=== PATIENT | male | born 1945 | race Caucasian/White ===

== ENCOUNTER 2017-04-23 11:59 | Inpatient (IN) | payer OTHER ==
[~2017-04-23] VITALS: Ht 157.5 cm; Wt 48.5 kg
[~2017-04-23 11:59] MED LIST: ASPI81 PO; DOCU-119 PO; LISI10TA7 PO; RIVA1PAT3 TD
[2017-04-23] MEDS ORDERED: SODIUM CHLORIDE 0.9% 1,000 ML IV ONE ×2 (12:30→14:00)
[2017-04-23] MEDS ORDERED: ACETAMINOPHEN 650 MG RECTAL SUPPOSITORY PR ONE (12:30)
[2017-04-23 12:37] LABS: GLUCOSE,POINT OF CARE 319 MG/DL (70-110)
[2017-04-23 13:12] LABS: BASOPHILS % (AUTO) 0.2 % (0.0-2.0); EOSINOPHILS % (AUTO) 0.4 % (1.0-6.0); HEMATOCRIT 50.2 % (41-53); HEMOGLOBIN 17.2 g/dL (13.5-17.5); LYMPHOCYTES # (AUTO) 2.8 K/uL (1.0-4.8); LYMPHOCYTES % (AUTO) 20.5 % (22.0-44.0); MEAN CORPUSCULAR HEMOGLOBIN 31.4 pg (26.0-34.0); MEAN CORPUSCULAR HGB CONC 34.3 G/dL (31.0-37.0); MEAN CORPUSCULAR VOLUME 92 fL (80-100); MONOCYTES # (AUTO) 0.8 K/uL (0.1-1.0); MONOCYTES % (AUTO) 5.6 % (2.0-9.0); NEUTROPHILS % (AUTO) 73.3 % (40.0-70.0); PLATELET COUNT (AUTO) 191 K/uL (150-450); RED BLOOD CELL COUNT(AUTO) 5.48 MIL/uL (4.50-5.90); RED CELL DISTRIBUTION WIDTH 14.2 % (11.5-14.5); WHITE BLOOD COUNT (AUTO) 13.7 K/uL (4.5-11.0)
[2017-04-23 13:21] LABS: TROPONIN I 0.24 ng/mL (0.00-0.05)
[2017-04-23 13:24] LABS: ALANINE AMINOTRANSFERASE 39 U/L (12-78); ALBUMIN 3.8 g/dL (3.4-5.0); ANION GAP 14 mmol/L (8-16); ASPARTATE AMINOTRANSFERASE 42 U/L (15-37); BILIRUBIN,TOTAL 0.9 mg/dL (0.1-1.0); CALCIUM, TOTAL 9.3 mg/dL (8.8-10.5); CARBON DIOXIDE 24 mmol/L (22-29); CHLORIDE 128 mmol/L (98-107); CREATININE 1.74 mg/dL (0.60-1.30); GLOMERULAR FILTR. RATE CALC 39 mL/min (>60); POTASSIUM 3.4 mmol/L (3.5-5.1); TOTAL PROTEIN, SERUM 7.9 g/dL (6.4-8.2); UREA NITROGEN, BLOOD 54 mg/dL (7-18)
[2017-04-23 13:39] LABS: B-TYPE NATRIURETIC PEPTIDE 75 pg/mL (0-100)
[2017-04-23 13:50] LABS: SODIUM SERUM 166 mmol/L (136-145)
[2017-04-23] MEDS ORDERED: ASPIRIN 81 MG CHEWABLE TABLET PO ONE (14:00)
[2017-04-23] MEDS ORDERED: LACTULOSE 200 GM/300 ML RECTAL SOLUTION PR ONE (14:00)
[2017-04-23] MEDS ORDERED: LISI-660 PO (14:01)
[2017-04-23] MEDS ORDERED: ACETAMINOPHEN 325 MG TABLET PO PRN ×2 (14:15→14:30)
[2017-04-23] MEDS ORDERED: 0.9% SODIUM CHLORIDE 10 ML SYRINGE IVP PRN (14:15)
[2017-04-23] MEDS ORDERED: ONDANSETRON HCL 4 MG/2 ML VIAL IVP PRN (14:15)
[2017-04-23] MEDS ORDERED: BISACODYL 10 MG RECTAL RECTAL SUPPOSITORY PR PRN (14:30)
[2017-04-23] MEDS ORDERED: ALBUTEROL SULFATE 2.5 MG/0.5 ML NEB SOLUTION NEB PRN (14:30)
[2017-04-23 14:48] LABS: CALCIUM, TOTAL 8.5 mg/dL (8.8-10.5); CREATININE 1.54 mg/dL (0.60-1.30); POTASSIUM 3.8 mmol/L (3.5-5.1)
[2017-04-23 15:00] VITALS: BP 148/88
[2017-04-23 15:06] LABS: LACTIC ACID 3.4 mmol/L (0.4-2.0)
[2017-04-23 15:07] LABS: REFLEX LACTIC ACID? YES YES
[2017-04-23] MEDS: SODIUM CHLORIDE 0.45% 1,000 ML IV SCH (16:28)
[2017-04-23 19:49] VITALS: BP 147/85
[2017-04-23] MEDS: HEPARIN SODIUM,PORCINE 5,000 UNITS/ML VIAL SQ SCH (20:47)
[2017-04-23] MEDS: DOCUSATE SODIUM 100 MG CAPSULE PO SCH (20:47)
[2017-04-23 23:40] VITALS: BP 152/83
[2017-04-24 07:03] LABS: BASOPHILS # (AUTO) 0.01 K/uL (0.00-0.20); BASOPHILS % (AUTO) 0.1 % (0.0-2.0); EOSINOPHILS # (AUTO) 0.04 K/uL (0.00-0.70); EOSINOPHILS % (AUTO) 0.46 % (1.0-6.0); HEMATOCRIT 45.3 % (41-53); HEMOGLOBIN 14.9 g/dL (13.5-17.5); LYMPHOCYTES # (AUTO) 1.2 K/uL (1.0-4.8); LYMPHOCYTES % (AUTO) 13.4 % (22.0-44.0); MEAN CORPUSCULAR HEMOGLOBIN 30.7 pg (26.0-34.0); MEAN CORPUSCULAR VOLUME 93 fL (80-100); MONOCYTES # (AUTO) 0.4 K/uL (0.1-1.0); MONOCYTES % (AUTO) 4.3 % (2.0-9.0); NEUTROPHILS # (AUTO) 7.5 K/uL (1.8-7.7); NEUTROPHILS % (AUTO) 81.7 % (40.0-70.0); PLATELET COUNT (AUTO) 144 K/uL (150-450); RED BLOOD CELL COUNT(AUTO) 4.86 MIL/uL (4.50-5.90); RED CELL DISTRIBUTION WIDTH 14.6 % (11.5-14.5); WHITE BLOOD COUNT (AUTO) 9.2 K/uL (4.5-11.0)
[2017-04-24 07:24] LABS: CALCIUM, TOTAL 8.4 mg/dL (8.8-10.5); CREATININE 1.3 mg/dL (0.60-1.30); POTASSIUM 3.8 mmol/L (3.5-5.1)
[2017-04-24] MEDS: DOCUSATE SODIUM 100 MG CAPSULE PO SCH ×2 (08:26→21:00)
[2017-04-24] MEDS: ASPIRIN 81 MG CHEWABLE TABLET PO SCH (08:26)
[2017-04-24] MEDS: PANTOPRAZOLE SODIUM 40 MG/VIAL IVP SCH (08:26)
[2017-04-24] MEDS: HEPARIN SODIUM,PORCINE 5,000 UNITS/ML VIAL SQ SCH ×2 (08:28→21:37)
[2017-04-24] MEDS: INSULIN DETEMIR 100 UNITS/ML SQ SCH ×2 (08:40→21:39)
[2017-04-24] MEDS: SODIUM CHLORIDE 0.45% 1,000 ML IV SCH ×2 (09:13→19:06)
[2017-04-24 10:04] VITALS: BP 149/89
[2017-04-24 16:11] VITALS: BP 150/84
[2017-04-24] MEDS: INSULIN ASPART 100 UNITS/ML SQ PRN ×2 (17:14→21:41)
[2017-04-24] MEDS ORDERED: DEXTROSE 50%-WATER 25 GM/50 ML SYRINGE IVP PRN (17:15)
[2017-04-24 17:44] LABS: ADD UA MICROSCOPIC YES; APPEARANCE,URINE TURBID (CLEAR); GLUCOSE, URINE (UA) >=1000 mg/dL (NEGATIVE); KETONES,URINE NEGATIVE (NEGATIVE); LEUKOCYTE ESTERASE ,URINE TRACE (NEGATIVE); OCCULT BLOOD,URINE LARGE (NEGATIVE); PROTEIN,URINE SEE CONFIRM (NEGATIVE)
[2017-04-24 17:48] LABS: RBC,URINE >100 /HPF (0-2); SQUAMOUS EPITHELIAL CELL,UR Few /LPF (None Seen); SULFOSALICYLIC ACID,URINE 3+ (Negative); URIC ACID CRYSTALS,URINE Few /LPF (None Seen)
[2017-04-24 19:53] VITALS: BP 148/86
[2017-04-24 21:02] LABS: GLUCOSE,POINT OF CARE 303 MG/DL (70-110)
[2017-04-24 22:07] LABS: GLUCOSE,POINT OF CARE 306 MG/DL (70-110)
[2017-04-24 23:48] VITALS: BP 154/88
[2017-04-25 03:45] VITALS: BP 152/84
[2017-04-25 06:55] LABS: ANION GAP 6 mmol/L (8-16); CALCIUM, TOTAL 8.4 mg/dL (8.8-10.5); CARBON DIOXIDE 28 mmol/L (22-29); CHLORIDE 134 mmol/L (98-107); CREATININE 0.93 mg/dL (0.60-1.30); GLOMERULAR FILTR. RATE CALC > 60 mL/min (>60); UREA NITROGEN, BLOOD 40 mg/dL (7-18)
[2017-04-25 07:34] LABS: SODIUM SERUM 168 mmol/L (136-145)
[2017-04-25 07:42] VITALS: BP 133/79
[2017-04-25] MEDS: DOCUSATE SODIUM 100 MG CAPSULE PO SCH ×2 (08:07→20:12)
[2017-04-25] MEDS: ASPIRIN 81 MG CHEWABLE TABLET PO SCH (08:07)
[2017-04-25] MEDS: HEPARIN SODIUM,PORCINE 5,000 UNITS/ML VIAL SQ SCH ×2 (08:09→20:12)
[2017-04-25] MEDS: PANTOPRAZOLE SODIUM 40 MG/VIAL IVP SCH (08:09)
[2017-04-25 08:23] LABS: GLUCOSE COMMENT 1 Juice/Food/D50 Given; GLUCOSE,POINT OF CARE 128 MG/DL (70-110)
[2017-04-25] MEDS: INSULIN DETEMIR 100 UNITS/ML SQ SCH ×2 (08:23→20:19)
[2017-04-25 08:27] LABS: GLUCOSE,POINT OF CARE 109 MG/DL (70-110)
[2017-04-25] MEDS ORDERED: POTASSIUM CHLORIDE 20 MEQ ER TABLET PO ONE (10:45)
[2017-04-25] MEDS: SODIUM CHLORIDE 0.45% 1,000 ML IV SCH (11:10)
[2017-04-25] MEDS: INSULIN ASPART 100 UNITS/ML SQ PRN ×3 (11:21→20:20)
[2017-04-25 11:23] LABS: GLUCOSE COMMENT 1 Received Meds; GLUCOSE,POINT OF CARE 295 MG/DL (70-110)
[2017-04-25 11:29] VITALS: BP 129/81
[2017-04-25] MEDS: DEXTROSE 5%-WATER 1,000 ML IV SCH (16:43)
[2017-04-25 17:38] LABS: GLUCOSE COMMENT 1 Received Meds; GLUCOSE,POINT OF CARE 214 MG/DL (70-110)
[2017-04-25 20:07] VITALS: BP 134/59
[2017-04-25 20:43] LABS: GLUCOSE COMMENT 1 Received Meds; GLUCOSE,POINT OF CARE 312 MG/DL (70-110)
[2017-04-25 23:30] VITALS: BP 128/78
[2017-04-26 04:55] VITALS: BP 145/75
[2017-04-26] MEDS: INSULIN ASPART 100 UNITS/ML SQ PRN ×4 (05:02→20:26)
[2017-04-26 05:08] LABS: GLUCOSE COMMENT 1 Received Meds; GLUCOSE,POINT OF CARE 234 MG/DL (70-110)
[2017-04-26 07:40] VITALS: BP 131/79
[2017-04-26] MEDS: HEPARIN SODIUM,PORCINE 5,000 UNITS/ML VIAL SQ SCH ×2 (08:15→19:38)
[2017-04-26] MEDS: DOCUSATE SODIUM 100 MG CAPSULE PO SCH ×2 (08:15→19:38)
[2017-04-26] MEDS: PANTOPRAZOLE SODIUM 40 MG/VIAL IVP SCH (08:15)
[2017-04-26] MEDS: ASPIRIN 81 MG CHEWABLE TABLET PO SCH (08:16)
[2017-04-26] MEDS: INSULIN DETEMIR 100 UNITS/ML SQ SCH ×2 (08:31→20:27)
[2017-04-26 11:27] VITALS: BP 131/78
[2017-04-26 12:53] LABS: GLUCOSE COMMENT 1 Received Meds; GLUCOSE,POINT OF CARE 313 MG/DL (70-110)
[2017-04-26] MEDS: DEXTROSE 5%-WATER 1,000 ML IV SCH (14:12)
[2017-04-26 15:36] LABS: BASOPHILS % (AUTO) 0.4 % (0.0-2.0); EOSINOPHILS % (AUTO) 4.1 % (1.0-6.0); HEMATOCRIT 38.5 % (41-53); HEMOGLOBIN 13.2 g/dL (13.5-17.5); LYMPHOCYTES # (AUTO) 1.5 K/uL (1.0-4.8); LYMPHOCYTES % (AUTO) 21.2 % (22.0-44.0); MEAN CORPUSCULAR HEMOGLOBIN 31.1 pg (26.0-34.0); MEAN CORPUSCULAR HGB CONC 34.2 G/dL (31.0-37.0); MEAN CORPUSCULAR VOLUME 91 fL (80-100); MONOCYTES # (AUTO) 0.4 K/uL (0.1-1.0); MONOCYTES % (AUTO) 5.8 % (2.0-9.0); NEUTROPHILS # (AUTO) 4.7 K/uL (1.8-7.7); NEUTROPHILS % (AUTO) 68.5 % (40.0-70.0); PLATELET COUNT (AUTO) 114 K/uL (150-450); RED BLOOD CELL COUNT(AUTO) 4.23 MIL/uL (4.50-5.90); RED CELL DISTRIBUTION WIDTH 14.1 % (11.5-14.5); WHITE BLOOD COUNT (AUTO) 6.9 K/uL (4.5-11.0)
[2017-04-26] MEDS ORDERED: GlyBURIDE 5 MG TABLET PO ONE (15:45)
[2017-04-26 15:48] VITALS: BP 115/63
[2017-04-26 15:59] LABS: ALANINE AMINOTRANSFERASE 61 U/L (12-78); ALBUMIN 2.5 g/dL (3.4-5.0); ANION GAP 7 mmol/L (8-16); ASPARTATE AMINOTRANSFERASE 56 U/L (15-37); BILIRUBIN,TOTAL 0.5 mg/dL (0.1-1.0); CALCIUM, TOTAL 8.2 mg/dL (8.8-10.5); CARBON DIOXIDE 25 mmol/L (22-29); CHLORIDE 120 mmol/L (98-107); CREATININE 0.96 mg/dL (0.60-1.30); GLOMERULAR FILTR. RATE CALC > 60 mL/min (>60); POTASSIUM 3.9 mmol/L (3.5-5.1); SODIUM SERUM 152 mmol/L (136-145); TOTAL PROTEIN, SERUM 6.2 g/dL (6.4-8.2); UREA NITROGEN, BLOOD 27 mg/dL (7-18)
[2017-04-26] MEDS: SODIUM CHLORIDE 0.45% 1,000 ML IV SCH (16:50)
[2017-04-26 18:18] LABS: GLUCOSE COMMENT 1 Received Meds; GLUCOSE,POINT OF CARE 244 MG/DL (70-110)
[2017-04-26 19:35] VITALS: BP 114/58
[2017-04-26 20:33] LABS: GLUCOSE COMMENT 1 Received Meds; GLUCOSE,POINT OF CARE 330 MG/DL (70-110)
[2017-04-26 23:08] VITALS: BP 123/75
[2017-04-27 03:50] VITALS: BP 115/67
[2017-04-27] MEDS: INSULIN ASPART 100 UNITS/ML SQ PRN ×2 (05:37→20:29)
[2017-04-27 06:53] LABS: GLUCOSE COMMENT 1 Received Meds; GLUCOSE,POINT OF CARE 221 MG/DL (70-110)
[2017-04-27 08:11] VITALS: BP 130/62
[2017-04-27] MEDS: GlyBURIDE 5 MG TABLET PO SCH (11:07)
[2017-04-27] MEDS: PANTOPRAZOLE SODIUM 40 MG/VIAL IVP SCH (11:07)
[2017-04-27] MEDS: ASPIRIN 81 MG CHEWABLE TABLET PO SCH (11:07)
[2017-04-27] MEDS: HEPARIN SODIUM,PORCINE 5,000 UNITS/ML VIAL SQ SCH ×2 (11:07→20:24)
[2017-04-27] MEDS: DOCUSATE SODIUM 100 MG CAPSULE PO SCH ×2 (11:07→20:24)
[2017-04-27] MEDS: INSULIN DETEMIR 100 UNITS/ML SQ SCH ×2 (11:09→20:27)
[2017-04-27 11:43] LABS: GLUCOSE COMMENT 1 Received Meds; GLUCOSE,POINT OF CARE 168 MG/DL (70-110)
[2017-04-27 12:12] LABS: BASOPHILS # (AUTO) 0.01 K/uL (0.00-0.20); BASOPHILS % (AUTO) 0.2 % (0.0-2.0); EOSINOPHILS # (AUTO) 0.09 K/uL (0.00-0.70); EOSINOPHILS % (AUTO) 0.96 % (1.0-6.0); HEMATOCRIT 41.3 % (41-53); HEMOGLOBIN 14.1 g/dL (13.5-17.5); MEAN CORPUSCULAR HEMOGLOBIN 30.9 pg (26.0-34.0); MEAN CORPUSCULAR VOLUME 91 fL (80-100); MONOCYTES # (AUTO) 0.2 K/uL (0.1-1.0); MONOCYTES % (AUTO) 2.5 % (2.0-9.0); NEUTROPHILS # (AUTO) 8.3 K/uL (1.8-7.7); RED BLOOD CELL COUNT(AUTO) 4.55 MIL/uL (4.50-5.90); RED CELL DISTRIBUTION WIDTH 13.6 % (11.5-14.5); WHITE BLOOD COUNT (AUTO) 9.6 K/uL (4.5-11.0)
[2017-04-27 12:15] LABS: NEUTROPHILS % (AUTO) 86.4 % (40.0-70.0); PLATELET COUNT (AUTO) 101 K/uL (150-450)
[2017-04-27 12:19] VITALS: BP 138/64
[2017-04-27 12:21] LABS: ANION GAP 6 mmol/L (8-16); CALCIUM, TOTAL 8.2 mg/dL (8.8-10.5); CARBON DIOXIDE 26 mmol/L (22-29); CHLORIDE 115 mmol/L (98-107); CREATININE 0.95 mg/dL (0.60-1.30); GLOMERULAR FILTR. RATE CALC > 60 mL/min (>60); POTASSIUM 4.3 mmol/L (3.5-5.1); SODIUM SERUM 147 mmol/L (136-145); UREA NITROGEN, BLOOD 22 mg/dL (7-18)
[2017-04-27 12:27] LABS: ALANINE AMINOTRANSFERASE 67 U/L (12-78); ALBUMIN 2.6 g/dL (3.4-5.0); ASPARTATE AMINOTRANSFERASE 59 U/L (15-37); BILIRUBIN,TOTAL 0.9 mg/dL (0.1-1.0); TOTAL PROTEIN, SERUM 6.3 g/dL (6.4-8.2)
[2017-04-27 12:30] LABS: RBC MORPHOLOGY COMMENT NORMAL RBC MORPH
[2017-04-27 16:00] VITALS: BP 129/80
[2017-04-27] MEDS: SODIUM CHLORIDE 0.45% 1,000 ML IV SCH (16:04)
[2017-04-27 19:48] LABS: GLUCOSE,POINT OF CARE 159 MG/DL (70-110)
[2017-04-27 20:10] VITALS: BP 114/67
[2017-04-27 23:07] VITALS: BP 129/64
[2017-04-28 00:23] LABS: GLUCOSE COMMENT 1 Received Meds; GLUCOSE,POINT OF CARE 190 MG/DL (70-110)
[2017-04-28 04:26] VITALS: BP 124/53
[2017-04-28 06:15] LABS: HEMATOCRIT 39.7 % (41-53); HEMOGLOBIN 13.7 g/dL (13.5-17.5); MEAN CORPUSCULAR HEMOGLOBIN 31.4 pg (26.0-34.0); MEAN CORPUSCULAR HGB CONC 34.6 G/dL (31.0-37.0); MEAN CORPUSCULAR VOLUME 91 fL (80-100); PLATELET COUNT (AUTO) 95 K/uL (150-450); RED BLOOD CELL COUNT(AUTO) 4.38 MIL/uL (4.50-5.90); RED CELL DISTRIBUTION WIDTH 13.7 % (11.5-14.5); WHITE BLOOD COUNT (AUTO) 10.5 K/uL (4.5-11.0)
[2017-04-28 06:57] LABS: ALANINE AMINOTRANSFERASE 96 U/L (12-78); ALBUMIN 2.5 g/dL (3.4-5.0); ANION GAP 8 mmol/L (8-16); ASPARTATE AMINOTRANSFERASE 106 U/L (15-37); BILIRUBIN,TOTAL 1.1 mg/dL (0.1-1.0); CARBON DIOXIDE 25 mmol/L (22-29); CHLORIDE 113 mmol/L (98-107); CREATININE 0.96 mg/dL (0.60-1.30); GLOMERULAR FILTR. RATE CALC > 60 mL/min (>60); POTASSIUM 3.6 mmol/L (3.5-5.1); SODIUM SERUM 146 mmol/L (136-145); TOTAL PROTEIN, SERUM 6.3 g/dL (6.4-8.2); UREA NITROGEN, BLOOD 26 mg/dL (7-18)
[2017-04-28 07:13] LABS: GLUCOSE,POINT OF CARE 133 MG/DL (70-110)
[2017-04-28 07:49] VITALS: BP 127/67
[2017-04-28 07:50] LABS: BAND NEUTROPHILS % (MANUAL) 12 % (1-5); LYMPHOCYTES % (MANUAL) 11 % (22-44); TOTAL CELLS COUNTED 100
[2017-04-28 07:51] LABS: RBC MORPHOLOGY COMMENT NORMAL RBC MORPH
[2017-04-28] MEDS: GlyBURIDE 5 MG TABLET PO SCH (08:00)
[2017-04-28] MEDS: SODIUM CHLORIDE 0.45% 1,000 ML IV SCH (08:30)
[2017-04-28] MEDS: DOCUSATE SODIUM 100 MG CAPSULE PO SCH ×2 (09:00→20:51)
[2017-04-28] MEDS: ASPIRIN 81 MG CHEWABLE TABLET PO SCH (09:00)
[2017-04-28] MEDS: PANTOPRAZOLE SODIUM 40 MG/VIAL IVP SCH (09:31)
[2017-04-28] MEDS: HEPARIN SODIUM,PORCINE 5,000 UNITS/ML VIAL SQ SCH ×2 (09:32→21:31)
[2017-04-28] MEDS: INSULIN DETEMIR 100 UNITS/ML SQ SCH ×2 (09:49→20:51)
[2017-04-28 11:31] VITALS: BP 133/117
[2017-04-28 12:03] LABS: GLUCOSE,POINT OF CARE 137 MG/DL (70-110)
[2017-04-28 16:05] VITALS: BP 131/72
[2017-04-28 18:18] LABS: GLUCOSE,POINT OF CARE 125 MG/DL (70-110)
[2017-04-28 18:24] LABS: APPEARANCE,URINE TURBID (CLEAR); GLUCOSE, URINE (UA) NEGATIVE (NEGATIVE); KETONES,URINE 15 mg/dL (NEGATIVE); LEUKOCYTE ESTERASE ,URINE NEGATIVE (NEGATIVE); OCCULT BLOOD,URINE LARGE (NEGATIVE); PROTEIN,URINE POS 1+ (NEGATIVE)
[2017-04-28 18:55] LABS: ADD UA MICROSCOPIC YES
[2017-04-28 18:57] LABS: WBC,URINE 0-2 /HPF (0-5)
[2017-04-28] MEDS: CefTRIAXone SODIUM 2 GM in DEXTROSE 5%-WATER 50 ML IV SCH (21:29)
[2017-04-28 21:35] VITALS: BP 149/78
[2017-04-28] MEDS ORDERED: VANCOMYCIN HCL 750 MG in DEXTROSE 5%-WATER 150 ML IV ONE (22:00)
[2017-04-29] VITALS (7 sets, daily range): BP systolic 122–145; BP diastolic 57–78
[2017-04-29] MEDS: SODIUM CHLORIDE 0.45% 1,000 ML IV SCH ×2 (01:54→15:14)
[2017-04-29 02:40] LABS: INFLUENZA TYPE B NEGATIVE FOR TYPE B (NEGATIVE)
[2017-04-29 04:17] LABS: GLUCOSE COMMENT 1 Juice/Food/D50 Given; GLUCOSE,POINT OF CARE 129 MG/DL (70-110)
[2017-04-29] MEDS: INSULIN ASPART 100 UNITS/ML SQ PRN ×2 (06:07→13:22)
[2017-04-29 07:15] LABS: BASOPHILS % (AUTO) 0.1 % (0.0-2.0); EOSINOPHILS % (AUTO) 0.7 % (1.0-6.0); HEMATOCRIT 37.3 % (41-53); HEMOGLOBIN 12.9 g/dL (13.5-17.5); LYMPHOCYTES # (AUTO) 0.5 K/uL (1.0-4.8); MEAN CORPUSCULAR HEMOGLOBIN 31.5 pg (26.0-34.0); MEAN CORPUSCULAR HGB CONC 34.7 G/dL (31.0-37.0); MEAN CORPUSCULAR VOLUME 91 fL (80-100); MONOCYTES # (AUTO) 0.4 K/uL (0.1-1.0); MONOCYTES % (AUTO) 5.3 % (2.0-9.0); NEUTROPHILS # (AUTO) 6.5 K/uL (1.8-7.7); NEUTROPHILS % (AUTO) 86.9 % (40.0-70.0); PLATELET COUNT (AUTO) 92 K/uL (150-450); RBC MORPHOLOGY COMMENT NORMAL RBC MORPH; RED BLOOD CELL COUNT(AUTO) 4.11 MIL/uL (4.50-5.90); RED CELL DISTRIBUTION WIDTH 13.7 % (11.5-14.5); WHITE BLOOD COUNT (AUTO) 7.5 K/uL (4.5-11.0)
[2017-04-29 07:23] LABS: ALANINE AMINOTRANSFERASE 82 U/L (12-78); ALBUMIN 2.2 g/dL (3.4-5.0); ANION GAP 11 mmol/L (8-16); ASPARTATE AMINOTRANSFERASE 54 U/L (15-37); BILIRUBIN,TOTAL 0.8 mg/dL (0.1-1.0); CALCIUM, TOTAL 7.7 mg/dL (8.8-10.5); CARBON DIOXIDE 23 mmol/L (22-29); CHLORIDE 112 mmol/L (98-107); CREATININE 0.98 mg/dL (0.60-1.30); GLOMERULAR FILTR. RATE CALC > 60 mL/min (>60); POTASSIUM 3.2 mmol/L (3.5-5.1); SODIUM SERUM 146 mmol/L (136-145); TOTAL PROTEIN, SERUM 6.3 g/dL (6.4-8.2); UREA NITROGEN, BLOOD 21 mg/dL (7-18)
[2017-04-29] MEDS: PANTOPRAZOLE SODIUM 40 MG/VIAL IVP SCH (09:06)
[2017-04-29] MEDS: VANCOMYCIN HCL 750 MG in DEXTROSE 5%-WATER 150 ML IV SCH ×2 (09:06→20:17)
[2017-04-29] MEDS: HEPARIN SODIUM,PORCINE 5,000 UNITS/ML VIAL SQ SCH ×2 (09:06→21:00)
[2017-04-29] MEDS: INSULIN DETEMIR 100 UNITS/ML SQ SCH ×2 (09:10→21:04)
[2017-04-29 10:08] LABS: GLUCOSE COMMENT 1 Received Meds; GLUCOSE,POINT OF CARE 157 MG/DL (70-110)
[2017-04-29 10:08] LABS: GLUCOSE COMMENT 1 Juice/Food/D50 Given; GLUCOSE,POINT OF CARE 191 MG/DL (70-110)
[2017-04-29 13:22] LABS: GLUCOSE COMMENT 1 Received Meds; GLUCOSE,POINT OF CARE 173 MG/DL (70-110)
[2017-04-29 20:12] LABS: GLUCOSE,POINT OF CARE 112 MG/DL (70-110)
[2017-04-29 21:13] LABS: GLUCOSE,POINT OF CARE 139 MG/DL (70-110)
[2017-04-29] MEDS: CefTRIAXone SODIUM 2 GM in DEXTROSE 5%-WATER 50 ML IV SCH (23:02)
[2017-04-30 04:10] VITALS: BP 145/75
[2017-04-30 05:37] LABS: GLUCOSE,POINT OF CARE 146 MG/DL (70-110)
[2017-04-30 05:54] LABS: BASOPHILS % (AUTO) 0.2 % (0.0-2.0); EOSINOPHILS % (AUTO) 2.8 % (1.0-6.0); HEMATOCRIT 33.8 % (41-53); HEMOGLOBIN 11.8 g/dL (13.5-17.5); LYMPHOCYTES # (AUTO) 0.8 K/uL (1.0-4.8); LYMPHOCYTES % (AUTO) 11.9 % (22.0-44.0); MEAN CORPUSCULAR HEMOGLOBIN 31.7 pg (26.0-34.0); MEAN CORPUSCULAR VOLUME 91 fL (80-100); MONOCYTES # (AUTO) 0.2 K/uL (0.1-1.0); MONOCYTES % (AUTO) 3.8 % (2.0-9.0); NEUTROPHILS # (AUTO) 5.3 K/uL (1.8-7.7); NEUTROPHILS % (AUTO) 81.3 % (40.0-70.0); PLATELET COUNT (AUTO) 96 K/uL (150-450); RED BLOOD CELL COUNT(AUTO) 3.74 MIL/uL (4.50-5.90); RED CELL DISTRIBUTION WIDTH 13.4 % (11.5-14.5); WHITE BLOOD COUNT (AUTO) 6.5 K/uL (4.5-11.0)
[2017-04-30] MEDS: SODIUM CHLORIDE 0.45% 1,000 ML IV SCH (06:21)
[2017-04-30 06:24] LABS: ALANINE AMINOTRANSFERASE 55 U/L (12-78); ANION GAP 10 mmol/L (8-16); ASPARTATE AMINOTRANSFERASE 33 U/L (15-37); BILIRUBIN,TOTAL 0.7 mg/dL (0.1-1.0); CALCIUM, TOTAL 7.6 mg/dL (8.8-10.5); CARBON DIOXIDE 22 mmol/L (22-29); CHLORIDE 111 mmol/L (98-107); CREATININE 0.82 mg/dL (0.60-1.30); GLOMERULAR FILTR. RATE CALC > 60 mL/min (>60); SODIUM SERUM 143 mmol/L (136-145); TOTAL PROTEIN, SERUM 5.9 g/dL (6.4-8.2); UREA NITROGEN, BLOOD 17 mg/dL (7-18)
[2017-04-30 06:44] LABS: POTASSIUM 2.9 mmol/L (3.5-5.1)
[2017-04-30 07:25] VITALS: BP 127/98
[2017-04-30] MEDS: VANCOMYCIN HCL 750 MG in DEXTROSE 5%-WATER 150 ML IV SCH (07:53)
[2017-04-30] MEDS: HEPARIN SODIUM,PORCINE 5,000 UNITS/ML VIAL SQ SCH (07:54)
[2017-04-30] MEDS: PANTOPRAZOLE SODIUM 40 MG/VIAL IVP SCH (07:54)
[2017-04-30] MEDS ORDERED: POTASSIUM CHL 10 MEQ/WATER 50 ML IV PRN (09:00)
[2017-04-30 11:19] VITALS: BP 126/74
[2017-04-30] MEDS ORDERED: VANCOMYCIN HCL 750 MG in DEXTROSE 5%-WATER 150 ML IV SCH (16:00)
== END 2017-04-30 11:55 | DRG 682 ==
LOC: EMS 12:01 → 6N 14:50
PROVIDERS: ADMIT Internal Medicine; ATTEND Internal Medicine
DX: N17.9 Acute kidney failure, unspecified (principal); G93.41 Metabolic encephalopathy; E87.0 Hyperosmolality and hypernatremia; E11.65 Type 2 diabetes mellitus with hyperglycemia; G24.01 Drug induced subacute dyskinesia; F03.90 Unspecified dementia, unspecified severity, without behavioral disturbance, psychotic disturbance, mood disturbance, and anxiety; J44.9 Chronic obstructive pulmonary disease, unspecified; I10 Essential (primary) hypertension; Z66 Do not resuscitate; F32.9 Major depressive disorder, single episode, unspecified; E86.0 Dehydration; Z88.0 Allergy status to penicillin; Z79.899 Other long term (current) drug therapy; Z79.82 Long term (current) use of aspirin; Z79.4 Long term (current) use of insulin; Z78.1 Physical restraint status
CPT/HCPCS: 51701; 70450; 82948; 82962; 83036; 83605; 84132; 87040; 87081; 87086; 87106; 87804; 92610; 93005; 96360; 96361; 97163; 97165; 99285; C9113; J0696; J1644; J3370; J3480; J7030; J7060